=== PATIENT | female | born 1950 | race Caucasian/White ===

== ENCOUNTER 2017-01-03 15:06 | Emergency (ER) | payer OTHER ==
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
--- NOTE | 2017-01-03 19:23 | ED ORDER SUMMARY ---
..... Patient: SHERMAN ANDRADE OrderSheet [facility] VisitID: [id number] [place] [address] 66y, F Registration Date/Time: 01/03/2017 ORDER SHEET Weight: 68.0 kg (stated) Allergies: PCN, Latex, Morphine and Related GENERAL ORDERS: CT Cervical Spine wo Cont Urgent (15:51 01/03/2017 Pieter LYLES) (Ack 15:55 Hansel) (16:46 JBoardley R.N.) CT Thorax w Cont (No) (See report) Urgent (15:51 01/03/2017 Pieter LYLES) (Ack 15:55 Hansel) (16:46 JBoarblanche R.N.) CBC w Diff Urgent (15:51 01/03/2017 Pieter LYLES) (Ack 15:55 Hansel) (16:03 JBoardley R.N.) CMP Urgent (15:51 01/03/2017 Pieter LYLES) (Ack 15:55 Hansel) (16:03 JBoardley R.N.) Movement Assembler (Continuous) (15:52 01/03/2017 Pieter LYLES) (16:03 Steffanydleshaila R.N.) EKG - ER Stat (15:53 01/03/2017 Pieter LYLES) (Ack 15:55 Hansel) (16:03 JBoardley R.N.) Pulse oximeter (15:53 01/03/2017 Pieter LYLES) (16:03 SATINDERoardleshaila R.N.) CPK Urgent (15:53 01/03/2017 Pieter LYLES) (Ack 15:55 Hansel) (16:03 SATINDERoardleshaila R.N.) Troponin-I Urgent (15:53 01/03/2017 Pieter LYLES) (Ack 15:55 Hansel) (16:03 JBoardley R.N.) Lumbar Spine 2 or 3V Urgent (16:41 01/03/2017 Pieter LYLES) (Ack 16:43 KURTISoedesiree) (16:46 SATINDERoardley R.N.) MEDICATION ORDERS: IV FLUIDS: IV NS : initial bolus 500 mL (1000 mL/hr), then 125 mL/hr for 4h (NOW); Urgent (15:51 01/03/2017 Pietre LYLES) (Ack 15:55 Estelita R.N.) (16:02 Estelita R.N.) Dilaudid IV 0.25 mg (HIGH ALERT MEDICATION, NOW) (15:52 01/03/2017 Pieter LYLES) (Ack 15:55 Estelita R.N.) (16:02 Estelita R.N.) Zofran IV 4 mg (NOW) (15:53 01/03/2017 Pieter LYLES) (Ack 15:55 Estelita R.N.) (16:03 Estelita R.N.) ORDER SHEET NOTES: [Electronically signed by Farida Cedeño R.N. (20:08 01/03/2017)] [Electronically signed by Sin Reid MD (20:19 01/03/2017)] [Electronically locked/signed by Farida Cedeño R.N. (20:08 01/03/2017)]
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
--- NOTE | 2017-01-03 19:23 | ED ORDER SUMMARY ---
..... Patient: SHERMAN ANDRADE OrderSheet [facility] VisitID: [id number] [place] [address] 66y, F Registration Date/Time: 01/03/2017 ORDER SHEET Weight: 68.0 kg (stated) Allergies: PCN, Latex, Morphine and Related GENERAL ORDERS: CT Cervical Spine wo Cont Urgent (15:51 01/03/2017 Pieter LYLES) (Ack 15:55 Hansel) (16:46 JBoardley R.N.) CT Thorax w Cont (No) (See report) Urgent (15:51 01/03/2017 Pieter LYLES) (Ack 15:55 Hansel) (16:46 JBoarblanche R.N.) CBC w Diff Urgent (15:51 01/03/2017 Pieter LYLES) (Ack 15:55 Hansel) (16:03 JBoardley R.N.) CMP Urgent (15:51 01/03/2017 Pieter LYLES) (Ack 15:55 Hansel) (16:03 JBoardley R.N.) Component Prep Operator (Continuous) (15:52 01/03/2017 Pieter LYLES) (16:03 Steffanydleshaila R.N.) EKG - ER Stat (15:53 01/03/2017 Pieter LYLES) (Ack 15:55 Hansel) (16:03 JBoardley R.N.) Pulse oximeter (15:53 01/03/2017 Pieter LYLES) (16:03 SATINDERoardleshaila R.N.) CPK Urgent (15:53 01/03/2017 Pieter LYLES) (Ack 15:55 Hansel) (16:03 SATINDERoardleshaila R.N.) Troponin-I Urgent (15:53 01/03/2017 Pieter LYLES) (Ack 15:55 Hansel) (16:03 JBoardley R.N.) Lumbar Spine 2 or 3V Urgent (16:41 01/03/2017 Pieter LYLES) (Ack 16:43 KURTISoedesiree) (16:46 SATINDERoardley R.N.) MEDICATION ORDERS: IV FLUIDS: IV NS : initial bolus 500 mL (1000 mL/hr), then 125 mL/hr for 4h (NOW); Urgent (15:51 01/03/2017 Pieter LYLES) (Ack 15:55 Estelita R.N.) (16:02 Estelita R.N.) Dilaudid IV 0.25 mg (HIGH ALERT MEDICATION, NOW) (15:52 01/03/2017 Pieter LYLES) (Ack 15:55 Estelita R.N.) (16:02 Estelita R.N.) Zofran IV 4 mg (NOW) (15:53 01/03/2017 Pieter LYLES) (Ack 15:55 Estelita R.N.) (16:03 Estelita R.N.) ORDER SHEET NOTES: [Electronically signed by Farida Cedeño R.N. (20:08 01/03/2017)] [Electronically signed by Sin Reid MD (20:19 01/03/2017)] [Electronically locked/signed by Farida Cedeño R.N. (20:08 01/03/2017)]
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
--- NOTE | 2017-01-03 20:19 | ED MAR SUMMARY ---
..... Medication Administration Record [facility] [address] [place] [address] Patient: SHERMAN ANDRADE Visit ID: [id number] 66y, F Weight: 68.0 kg Height/Length: 62 in BMI: 27.4 ALLERGIES: Morphine and Related, Latex, PCN Start 15:52 01/03/2017 Keith Vaca R.N., Stop 19:05 01/03/2017 Keith Vaca R.N. Medication Administered: IV NS (SALINE), Dose: IV Fluids over 1 hour(s), Rate: 1000 mL/hr, Dispensed: 1000 mL bag, Site: #1 left AC. Medication Ordered: IV NS : initial bolus 500 mL (1000 mL/hr), then 125 mL/hr for 4h (NOW); Urgent. Given 15:57 01/03/2017 Keith Vaca R.N. Medication Administered: DILAUDID [IVP] (HYDROMORPHONE HCL PF), Dose: 0.25 mg IVP over 2 minute(s), Site: #1 left AC. Medication Ordered: Dilaudid IV 0.25 mg (HIGH ALERT MEDICATION, NOW). Given 15:58 01/03/2017 Keith Vaca R.N. Medication Administered: ZOFRAN [IVP] (ONDANSETRON HCL), Dose: 4 mg IVP over 2 minute(s), Site: #1 left AC. Medication Ordered: Zofran IV 4 mg (NOW).
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
--- NOTE | 2017-01-03 20:19 | ED MAR SUMMARY ---
..... Medication Administration Record [facility] [address] [place] [address] Patient: SHERMAN ANDRADE Visit ID: [id number] 66y, F Weight: 68.0 kg Height/Length: 62 in BMI: 27.4 ALLERGIES: Morphine and Related, Latex, PCN Start 15:52 01/03/2017 Keith Vaca R.N., Stop 19:05 01/03/2017 Keith Vaca R.N. Medication Administered: IV NS (SALINE), Dose: IV Fluids over 1 hour(s), Rate: 1000 mL/hr, Dispensed: 1000 mL bag, Site: #1 left AC. Medication Ordered: IV NS : initial bolus 500 mL (1000 mL/hr), then 125 mL/hr for 4h (NOW); Urgent. Given 15:57 01/03/2017 Keith Vaca R.N. Medication Administered: DILAUDID [IVP] (HYDROMORPHONE HCL PF), Dose: 0.25 mg IVP over 2 minute(s), Site: #1 left AC. Medication Ordered: Dilaudid IV 0.25 mg (HIGH ALERT MEDICATION, NOW). Given 15:58 01/03/2017 Keith Vaca R.N. Medication Administered: ZOFRAN [IVP] (ONDANSETRON HCL), Dose: 4 mg IVP over 2 minute(s), Site: #1 left AC. Medication Ordered: Zofran IV 4 mg (NOW).
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
== END 2017-01-03 20:10 | disposition home or self-care (01) ==
LOC: ED SRH 15:06
DX: S20.219A Contusion of unspecified front wall of thorax, initial encounter (principal); V49.49XA Driver injured in collision with other motor vehicles in traffic accident, initial encounter; Y93.89 Activity, other specified; Y92.410 Unspecified street and highway as the place of occurrence of the external cause; Y99.8 Other external cause status; Z88.0 Allergy status to penicillin; Z88.5 Allergy status to narcotic agent; Z91.040 Latex allergy status
CPT/HCPCS: 90100; 90616; 92610; 95059